=== PATIENT | male | born 1965 | race Caucasian/White ===

== ENCOUNTER 2020-11-28 01:57 | Day surgery (SDC) | payer MEDICARE, SELFPAY ==
[2020-11-16 12:53] VITALS: BMI 27.1
[2020-11-28 08:34] VITALS: BP 117/68; PULSE 90; RESP 16; TEMP 36.2; O2SAT 100
[2020-11-28] MEDS: LACTATED RINGERS 1,000 ML 150 ML IV CONT (08:46)
--- NOTE | 2020-11-28 09:13 | WPDANESEPPF ---
Anes - Initial Pre Proc Eval Procedure: Operation Date: 11/28/20 09:45 Proposed Procedures p Screening Colonoscopy - Poncho Keys MD Date/Time: 11/28/20 09:13 Surgeon: Poncho Keys MD Pre Op Diagnosis: hx of colon polyps Patient Data Age: 55 Gender: M Height: 1.83 m Weight: 87.8 kg Last Vital Signs Temp 36.2 C L 11/28/20 08:34 Pulse 90 11/28/20 08:34 Resp 16 11/28/20 08:34 BP 117/68 11/28/20 08:34 Pulse Ox 100 11/28/20 08:34 Allergies Allergy/AdvReac Type Severity Reaction Status Date / Time Sulfa (Sulfonamide Allergy Mild rash Verified 11/28/20 08:30 Antibiotics) Home Medications Medication Instructions Recorded Confirmed Type budesonide 3 mg 6 mg PO DAILY #60 ea 11/06/20 11/16/20 Rx capsule,delayed,extended release Adult One Daily Multivitamin 1 tablet PO DAILY 11/16/20 11/16/20 History FiberCon 2 cap PO BID 11/16/20 11/16/20 History amitriptyline 25 mg PO HS 11/16/20 11/16/20 History atorvastatin 20 mg PO DAILY 11/16/20 11/16/20 History buspirone 10 mg PO DAILY 11/16/20 11/16/20 History diphenhydramine HCl [Sleep Aid 25 mg PO HS 11/16/20 11/16/20 History (diphenhydramine)] hydrochlorothiazide 25 mg PO DAILY 11/16/20 11/16/20 History lorazepam 1 mg PO TID 11/16/20 11/16/20 History losartan 100 mg PO HS 11/16/20 11/16/20 History melatonin 15 mg PO HS 11/16/20 11/16/20 History metoprolol tartrate 50 mg PO BID 11/16/20 11/16/20 History niacin 500 mg PO BID 11/16/20 11/16/20 History quetiapine 100 mg PO HS 11/16/20 11/16/20 History timolol maleate 1 drp EACH EYE BID 11/16/20 11/16/20 History trazodone 200 mg PO HS 11/16/20 11/16/20 History venlafaxine 150 mg PO DAILY 11/16/20 11/16/20 History Patient hx anesthesia problems: none Family hx anesthesia problems: none [facility] Social History Social History (Updated 11/06/20 @ 14:27 by Renea Paredes [facility]) Smoking packs per day: 0.5 Smoking cigarettes per day: 10.0 Years smoked: 28 Smoking pack-years: 14.00 Smoking status: Current every day smoker Tobacco type: cigarettes Second hand tobacco smoke exposure: No Alcohol intake: former Substance use: never Living arrangements: alone Spiritual care concerns: No Anes - Eval Final PreProcedure Day of Procedure 11/28/20 09:13 Patient weight: overweight Heart: regular rate and rhythm Lungs: clear to auscultation and normal air movement Airway: Mallampati scale class II Neurological: alert and oriented Last oral intake: >/= 8 hours ASA classification: II Emergent: no Anesthetic plan: proceed Anesthesia type and monitoring: general GIVS Informed Consent: The patient's anesthetic plan and its attendant risks and benefits were discussed with the patient/family/POA. Questions were solicited and answers provided to the satisfaction of the patient/family/POA.
--- NOTE | 2020-11-28 09:27 | WPDGICN ---
Assessment and Plan Assessment and plan (1) Chronic diarrhea: Code(s): K52.9 - Noninfective gastroenteritis and colitis, unspecified Status: Acute Assessment and Plan: Patient has complaints of chronic ongoing diarrhea. This may be related to irritable bowel syndrome. He has had a partial colectomy which could contribute to diarrhea. Irritable bowel syndrome has been suggested. On 1 previous colonoscopy microscopic colitis was identified. Currently had no response to budesonide. Plan is for repeat colonoscopy to assess for ongoing diarrhea. Further recommendations will be given after endoscopy. (2) History of colon polyps: Code(s): Z86.010 - Personal history of colonic polyps Status: Acute Assessment and Plan: Patient is reported to have colon polyps in the past. Surveillance colonoscopy is advised for this reason. (3) IBS (irritable bowel syndrome): Code(s): K58.9 - Irritable bowel syndrome without diarrhea Status: Acute (4) Microscopic colitis: Code(s): K52.839 - Microscopic colitis, unspecified Status: Acute Assessment and Plan: Patient with a history of microscopic colitis. Currently has poor response to budesonide suggest an alternate etiology for his diarrhea. (5) History of partial colectomy: Code(s): Z90.49 - Acquired absence of other specified parts of digestive tract Status: Acute Assessment and Plan: Partial colectomy may contribute to his chronic diarrhea. Patient may need to add except this in modified diet. GI Consult Note Consult date/time: 11/28/20 09:27 HPI: Casey Melton is a 55 year old male Presents for colonoscopy because of ongoing complaints of diarrhea. Patient states he never has a formed stool. Patient has a past medical history of colon polyps. He underwent partial colectomy by Dr. Romero many years ago. Colonoscopy by Dr. Vick in 2017 biopsies suggested microscopic colitis. Patient recently has been on budesonide 6 mg p.o. daily with no responsive stools. FiberCon supplements have been added with no change in bowel movements. Patient denies any bleeding or weight loss. Family history is noncontributory. Patient presents today for colonoscopy because of ongoing diarrhea. Review of Systems Review of Systems: All systems reviewed & are unremarkable except as noted in HPI and below [facility] Social History Social History (Updated 11/06/20 @ 14:[address] [facility]) Smoking packs per day: 0.5 Smoking cigarettes per day: 10.0 Years smoked: 28 Smoking pack-years: 14.00 Smoking status: Current every day smoker Tobacco type: cigarettes Second hand tobacco smoke exposure: No Alcohol intake: former Substance use: never Living arrangements: alone Spiritual care concerns: No Meds Home Medications and Allergies Home Medications Medication Instructions Recorded Confirmed Type budesonide 3 mg 6 mg PO DAILY #60 ea 11/06/20 11/16/20 Rx capsule,delayed,extended release Adult One Daily Multivitamin 1 tablet PO DAILY 11/16/20 11/16/20 History FiberCon 2 cap PO BID 11/16/20 11/16/20 History amitriptyline 25 mg PO HS 11/16/20 11/16/20 History atorvastatin 20 mg PO DAILY 11/16/20 11/16/20 History buspirone 10 mg PO DAILY 11/16/20 11/16/20 History diphenhydramine HCl [Sleep Aid 25 mg PO HS 11/16/20 11/16/20 History (diphenhydramine)] hydrochlorothiazide 25 mg PO DAILY 11/16/20 11/16/20 History lorazepam 1 mg PO TID 11/16/20 11/16/20 History losartan 100 mg PO HS 11/16/20 11/16/20 History melatonin 15 mg PO HS 11/16/20 11/16/20 History metoprolol tartrate 50 mg PO BID 11/16/20 11/16/20 History niacin 500 mg PO BID 11/16/20 11/16/20 History quetiapine 100 mg PO HS 11/16/20 11/16/20 History timolol maleate 1 drp EACH EYE BID 11/16/20 11/16/20 History trazodone 200 mg PO HS 11/16/20 11/16/20 History venlafaxine 150 mg PO DAILY 11/16/20 11/16/20 History A
[2020-11-28 10:25] VITALS: BP 90/56; PULSE 63; RESP 29; O2SAT 96
[2020-11-28 10:35] VITALS: BP 88/60; PULSE 62; RESP 27; O2SAT 96
[2020-11-28 10:45] VITALS: BP 112/77; PULSE 69; RESP 29; O2SAT 100
== END 2020-11-28 11:05 | disposition home or self-care (01) ==
PROVIDERS: PCP Family Medicine Adolescent Medicine; Visit Provider Internal Medicine Gastroenterology
PROC: 0DJD8ZZ Inspection of Lower Intestinal Tract, Via Natural or Artificial Opening Endoscopic (ICD-10-PCS; CPT 45378; principal; 2020-11-28 09:45)
DX: K52.9 Noninfective gastroenteritis and colitis, unspecified (principal); D12.4 Benign neoplasm of descending colon; Z98.0 Intestinal bypass and anastomosis status; K64.8 Other hemorrhoids; K52.839 Microscopic colitis, unspecified; Z90.49 Acquired absence of other specified parts of digestive tract; F17.210 Nicotine dependence, cigarettes, uncomplicated
CPT/HCPCS: 45380; 45385; 88305; J2704; J7120

== ENCOUNTER 2020-12-15 10:39 | Outpatient (CLI) | payer MEDICARE, SELFPAY ==
[2020-12-15 12:03] LABS: Basophils Percent Auto 0.6 % (0.2-1.2); Eosinophils Absolute Auto 0.1 K/mm3 (0-0.3); Eosinophils Percent Auto 2.1 % (0-4.4); Hematocrit 38.8 % (42.0-52.0); Immature Granulocyte Absolute 0.01 K/mm3 (0.00-0.031); Immature Granulocyte Percent A 0.2 % (0-0.5); Lymphocytes Absolute Auto 2.72 K/mm3 (0.9-3.2); Lymphocytes Percent Auto 52.1 % (18.3-44.2); Mean Corpuscular HGB Conc 33.5 g/dl (32-36); Mean Corpuscular Hemoglobin 30.2 pg (26-34); Mean Corpuscular Volume 90.2 fl (80-100); Mean Platelet Volume 9.5 fl (7.4-10.4); Monocytes Absolute Auto 0.4 K/mm3 (0.1-0.6); Monocytes Percent Auto 8.2 % (2.6-8.5); Neutrophils Absolute Auto 1.9 K/mm3 (1.3-6.7); Neutrophils Percent Auto 36.8 % (45.5-73.1); Platelet Count Result 247 k/mm3 (150-375); Red Cell Distribution Width 13.3 % (11.5-14.5); White Blood Count 5.2 K/mm3 (4.5-10.0)
[2020-12-15 12:18] LABS: Alanine Aminotransferase 29 U/L (4-50); Albumin Level 4.3 g/dL (3.5-5.1); Alkaline Phosphatase 81 U/L (38-126); Anion Gap 12 mmol/L (8-16); Aspartate Amino Transferase 27 U/L (17-59); Bilirubin,Total 0.5 mg/dL (0.2-1.3); Blood Urea Nitrogen 30 mg/dL (9-20); Calcium 7.1 mg/dL (8.4-10.2); Carbon Dioxide 21 mmol/L (22-30); Chloride 107 mmol/L (98-107); Estimated Glomerular Filt Rate 37; Glucose 107 mg/dL (65-110); Potassium 3.9 mmol/L (3.4-5.0); Sodium 140 mmol/L (137-145)
[2020-12-15 12:33] LABS: Free T4 Free Thyroxine 1.18 ng/mL (0.78-2.19)
[2020-12-21 11:43] LABS: Gliadin AB, IgG 3 Units (<20); Reticulin IgA Negative (Negative); TTG IGA AB 1 U/mL (<4)
== END 2020-12-15 10:40 | disposition home or self-care (01) ==
PROVIDERS: PCP Family Medicine Adolescent Medicine; Visit Provider Internal Medicine Gastroenterology
DX: K52.9 Noninfective gastroenteritis and colitis, unspecified (principal)
CPT/HCPCS: 36415; 80053; 83516; 84439; 85025; 86255

== ENCOUNTER 2021-03-02 08:53 | Outpatient (CLI) | payer MEDICARE, SELFPAY ==
--- NOTE | ~2021-03-02 | XR_ITS ---
EXAMINATION: XR small bowel follow through EXAM DATE: 03/02/2021 10:10 INDICATION: K52.9Noninfective gastroenteritis and colitis, [id number] TECHNIQUE: Pediatric Clinical Nurse Specialist radiograph was acquired. Barium was administered for small bowel exam performed by radiologist Luis Holman M.D.. Spot images of the terminal ileum were acquired. Pulsed dose reductio n fluoroscopy was used with fluoroscopic time of 0.2. The DAP for this procedure was 107 Gycm2. A t otal of 44 images obtained for the exam. Correlation is made to CT abdomen pelvis 11/08/2014. FINDINGS: Ileal and jejunal fold patterns are normal. There is no small bowel wall thickening or m ass effect displacing small bowel. There are no intraluminal filling defects identified. There is n o small bowel dilation. Terminal ileum is normal in appearance. Contrast reached the colon by 15 mi nutes time, rapid transit. Incidental note made of prominent rugal folds on the 15 minute KUB. Could be phasic but with some dif ferential diagnosis considerations including gastritis, Kranthi Alcazar syndrome, Menetrier's disea se, and possibly early lymphoma. IMPRESSION: 1. Rapid transit time of 15 minutes. Unremarkable small bowel. 2. Prominent rugal folds, could be phasic but consider upper GI examination. Reviewed, dictated and finalized at location A.
== END 2021-03-02 08:54 | disposition home or self-care (01) ==
PROVIDERS: PCP Family Medicine Adolescent Medicine; Visit Provider Internal Medicine Gastroenterology
DX: K52.839 Microscopic colitis, unspecified (principal)
CPT/HCPCS: 74250

== ENCOUNTER 2021-03-20 22:47 | Inpatient (IN) | payer MEDICARE, SELFPAY ==
[2021-03-20 22:48] VITALS: BP 143/81; PULSE 98; RESP 18; TEMP 36.4; O2SAT 100
[2021-03-20 23:22] LABS: Basophils Percent Auto 0.5 % (0.2-1.2); Eosinophils Percent Auto 0.1 % (0-4.4); Hematocrit 36.6 % (42.0-52.0); Hemoglobin 13.7 g/dL (14.0-18.0); Immature Granulocyte Absolute 0.02 K/mm3 (0.00-0.031); Immature Granulocyte Percent A 0.2 % (0-0.5); Lymphocytes Absolute Auto 1.97 K/mm3 (0.9-3.2); Lymphocytes Percent Auto 22.2 % (18.3-44.2); Mean Corpuscular HGB Conc 37.4 g/dl (32-36); Mean Corpuscular Hemoglobin 32.3 pg (26-34); Mean Corpuscular Volume 86.3 fl (80-100); Mean Platelet Volume 9.5 fl (7.4-10.4); Monocytes Absolute Auto 0.4 K/mm3 (0.1-0.6); Monocytes Percent Auto 4.4 % (2.6-8.5); Neutrophils Absolute Auto 6.5 K/mm3 (1.3-6.7); Neutrophils Percent Auto 72.6 % (45.5-73.1); Platelet Count Result 288 k/mm3 (150-375); Red Blood Count 4.24 M/mm3 (4.6-6.20); White Blood Count 8.9 K/mm3 (4.5-10.0)
[2021-03-20 23:24] VITALS: BP 127/82; PULSE 96; RESP 37; O2SAT 100
[2021-03-20 23:31] LABS: Alanine Aminotransferase 25 U/L (4-50); Albumin Level 4.8 g/dL (3.5-5.1); Alkaline Phosphatase 88 U/L (38-126); Anion Gap 24 mmol/L (8-16); Aspartate Amino Transferase 31 U/L (17-59); Bilirubin,Total 0.8 mg/dL (0.2-1.3); Blood Urea Nitrogen 73 mg/dL (9-20); Calcium 6.8 mg/dL (8.4-10.2); Carbon Dioxide 11 mmol/L (22-30); Chloride 100 mmol/L (98-107); Estimated CRCL calculation 23 ml/min; Estimated Glomerular Filt Rate 18; Glucose 118 mg/dL (65-110); Lipase 273 U/L (23-300); Potassium 2.9 mmol/L (3.4-5.0); Sodium 135 mmol/L (137-145)
--- NOTE | 2021-03-20 23:37 | ED.NAVMDI ---
HPI - Nausea/Vomiting/Diarrhea General Chief complaint: Nausea/Vomiting/Diarrhea Stated complaint: gen weakness, vomit, diarrhea, fatigue Time Seen by Provider: 03/20/21 23:35 Source: patient Mode of arrival: ambulatory Limitations: no limitations History of Present Illness HPI Narrative: Patient is a 56-year-old male with a history of microscopic colitis, following with gastroenterology Dr. Keys, presenting for evaluation of vomiting and diarrhea. Patient denies any abdominal pain, states that 3 to 4 days ago he developed numerous episodes of nonbloody, nonbilious emesis. Patient states he has been unable to tolerate any oral intake over the past 72 hours. Patient denies any abdominal pain or cramping. Reports multiple episodes of loose stools daily patient states he has been compliant with his budesonide as prescribed to him to help with chronic diarrhea, although he has not had improvement in his symptoms patient reports feeling dehydrated. He reports muscle cramping. He denies recent food indiscretions. No recent travel. He is vaccinated for Covid, does have history of Covid infection in December. Related Data Home Medications Medication Instructions Recorded Confirmed Adult One Daily Multivitamin 1 tablet PO DAILY 11/16/20 03/21/21 amitriptyline 75 mg PO HS 11/16/20 03/21/21 atorvastatin 20 mg PO DAILY 11/16/20 03/21/21 buspirone 10 mg PO BID 11/16/20 03/21/21 hydrochlorothiazide 25 mg PO DAILY 11/16/20 03/21/21 lorazepam 1 mg PO TID 11/16/20 03/21/21 losartan 100 mg PO HS 11/16/20 03/21/21 melatonin 15 mg PO HS 11/16/20 03/21/21 metoprolol tartrate 50 mg PO BID 11/16/20 03/21/21 niacin 500 mg PO BID 11/16/20 03/21/21 quetiapine 100 mg PO HS 11/16/20 03/21/21 timolol maleate 1 drp EACH EYE BID 11/16/20 03/21/21 trazodone 200 mg PO HS 11/16/20 03/21/21 venlafaxine 150 mg PO DAILY 11/16/20 03/21/21 Allergies Allergy/AdvReac Type Severity Reaction Status Date / Time Sulfa (Sulfonamide Allergy Mild rash Verified 03/20/21 22:54 Antibiotics) Review of Systems Review of Systems: CONSTITUTIONAL: Denies fever, chills, or sweats. EYES: Denies visual changes, redness, or discharge. ENT: Denies rhinorrhea, congestion, sore throat, or otalgia. CARDIOVASCULAR: Denies chest pain, palpitations, or edema. RESPIRATORY: Denies cough or dyspnea. GASTROINTESTINAL: Denies abdominal pain, reports nausea, vomiting and diarrhea GENITOURINARY: Denies dysuria or hematuria. SKIN: Denies rash or itching. MUSCULOSKELETAL: Denies back pain, joint pain, reports myalgias and leg cramping NEUROLOGIC: Denies headache, numbness, or weakness. [facility] Past Medical History Medical History (Updated 03/21/21 @ 03:33 by Winter Martínez MD) Chronic diarrhea History of colon polyps IBS (irritable bowel syndrome) Microscopic colitis Surgical History Surgical History (Updated 03/21/21 @ 00:01 by Winter Martínez MD) History of partial colectomy Social History Social History Smoking packs per day: 0.5 Smoking cigarettes per day: 10.0 Years smoked: 28 Smoking pack-years: 14.00 Smoking status: Current every day smoker Tobacco type: cigarettes Second hand tobacco smoke exposure: No Alcohol intake: former Substance use: never Spiritual care concerns: No Exam Narrative: GENERAL: Awake, alert, conversant HEAD: Normocephalic, atraumatic. EYES: PERRLA and EOMI. ENT: Nares clear, no rhinorrhea or epistaxis. Mucous membranes dry. NECK: Supple. CHEST: No respiratory distress, breathing even and non labored HEART: Regular rate, sinus rhythm ABDOMEN:Non distended, non tender EXTREMITIES: Normal range of motion. No edema. SKIN: Warm, dry, no rash. NEURO:No focal deficits. Alert and oriented x3 Course Vital Signs Vital signs: Vital Signs Temperature 36.4 C 03/20/21 22:48 Pulse Rate 98 03/20/21 22:48 Respiratory Rate 18 03/20/21 22:48 Blood Pressu
[2021-03-20] MEDS: SODIUM CHLORIDE 0.9% IV 1,000 ML 999 ML IV CONT (23:43)
[2021-03-20] MEDS: ONDANSETRON INJ 4 MG/2 ML VIAL IV PUSH (23:44)
[2021-03-21] VITALS (11 sets, daily range): BP systolic 128–170; BP diastolic 80–97; PULSE 74–106; RESP 16–25; TEMP 36.3; O2SAT 99–100; BMI 26.9
--- NOTE | 2021-03-21 00:25 | PM.IMHP ---
H&P: HPI History of Present Illness Date/Time: 03/21/21 00:25 Chief Complaint: Nausea and vomiting Narrative: This is a 56-year-old male with past medical history significant for chronic diarrhea, microscopic colitis, irritable bowel syndrome, tobacco dependence, hypertension, glaucoma. Patient presented to the emergency room due to nausea, vomiting for several days unable to keep anything down ,patient started having muscle cramps feeling dizzy dry mouth, no abdominal pain, no fevers ,no rigors, no chills ,no cough, no sputum production, no shortness of breath no melena no hematemesis no bright red blood per rectum he chronically has diarrhea several bowel movements in between 3-8 roughly, vomits had mainly fluid as he has not been able to eat last time he had something to eat was a piece of toast earlier in the day prior to coming to emergency room. Patient was starting to feel lightheaded and had near syncope. Preliminary workup was significant for chemistry panel with creatinine 3.6 BUN 70 potassium 2.9. Patient received fluid resuscitation while in the emergency room decision has been made to admit the patient for further management evaluation and treatment. Review of Systems Review of Systems: Nausea, vomiting, muscle cramps, dizziness, lightheadedness, near-syncope. Constitutional: Constitutional: Denies chills, Reports fatigue, Denies fever(s), Reports lethargy, Reports poor appetite and Reports weakness Eyes: Eyes: Denies change in vision ENT: Denies dysphagia, Denies vertigo, Reports dizziness, Denies nasal congestion, Denies nasal discharge, Denies nasal obstruction and Denies odynophagia Cardiovascular: Cardiovascular: Denies irregular heart rhythm, Denies claudication, Denies leg edema, Reports lightheadedness, Denies radiating jaw, neck or arm pain, Denies palpitations, Denies dyspnea, Denies dyspnea on exertion and Denies orthopnea Respiratory: Respiratory: Denies cough and Denies dyspnea Gastrointestinal: Gastrointestinal: Denies abdominal pain, Denies dyspepsia, Denies heartburn, Reports nausea and Reports vomiting Genitourinary: Genitourinary: Reports no additional male genitourinary complaints and Reports as per HPI Musculoskeletal: Comments: Muscle cramps Integumentary/Breasts: Skin/Breast: Denies rash Neurologic: Denies dizziness, Denies focal weakness, Denies Sensory deficit (Neuro) and Denies weakness Psychiatric: Psychiatric: Reports no additional psychiatric complaints and Reports as per HPI Endocrine: Endocrine: Reports no additional endocrine complaints and Reports as per HPI Hematologic/Lymphatic: Hematologic/Lymphatic: Reports no additional hematologic/lymphatic complaints and Reports as per HPI Allergic/Immunologic: Allergic/Immunologic: Reports no additional allergic/immunologic complaints and Reports as per HPI PMFSH Past Medical History Medical History (Updated 03/21/21 @ 05:09 by Missy García MD) Chronic diarrhea History of colon polyps IBS (irritable bowel syndrome) Microscopic colitis Surgical History Surgical History (Updated 03/21/21 @ 00:01 by Winter Martínez MD) History of partial colectomy Social History Social History Smoking packs per day: 0.5 Smoking cigarettes per day: 10.0 Years smoked: 28 Smoking pack-years: 14.00 Smoking status: Current every day smoker Tobacco type: cigarettes Second hand tobacco smoke exposure: No Alcohol intake: former Substance use: never Spiritual care concerns: No Meds Home Medications and Allergies Home Medications Medication Instructions Recorded Confirmed Type Adult One Daily Multivitamin 1 tablet PO DAILY 11/16/20 03/21/21 History amitriptyline 75 mg PO HS 11/16/20 03/21/21 History atorvastatin 20 mg PO DAILY 11/16/20 03/21/21 History buspirone 10 mg PO BID 11/16/20 03/21/21 History hydrochlorothiazide 25 mg PO DAILY 11/16/20 03/21/21 History evelia
[2021-03-21 00:42] LABS: Magnesium < 0.2 mg/dL (1.6-2.3)
[2021-03-21] MEDS: DEXTROSE 5%/0.45% SOD CHL 1,000 ML 250 ML IV CONT ×2 (00:53→11:00)
[2021-03-21] MEDS: SODIUM CHLORIDE 0.9% IV 1,000 ML 999 ML IV CONT (01:19)
--- NOTE | 2021-03-21 02:00 | PC.NURSE ---
pt unable to urinate and declining straight cath at this time.
[2021-03-21] MEDS: SODIUM CHLORIDE 0.9% IV 1,000 ML 125 ML IV CONT ×2 (02:01→13:46)
[2021-03-21] MEDS: MAGNESIUM SULF 2 GM/WATER 50ML 2 GM/50 ML BAG IVPB (02:02)
--- NOTE | 2021-03-21 02:57 | ADMGEN ---
This patient, Casey Melton, was admitted to 3 [facility] Room 320-01. Patient/family oriented to hospital policies and general routines including ID bracelet, bed and alarms, visiting hours, pain management, procedures, bathroom and other care routines, personal items, smoking policy, room service/diet, and visiting hours. Information on how to activate the Rapid Response Team has been discussed. Patient/Family are encouraged to report perceived risks to care and to ask questions if they do not understand what they are told or what they should do.
[2021-03-21] MEDS: CALCIUM GLUC 1,000 MG/NS 50 ML 1,000 MG/50 ML BAG 100 MG IVPB (04:31)
[2021-03-21 08:02] LABS: Add Urine Microscopic? YES; Appearance Urine Cloudy (Clear); Bilirubin Urine Negative (Negative); Blood Urine 2+ (Negative); Color Urine Yellow (Yellow); Glucose Urine UA Negative (Negative); Hyaline Casts Urine 30-49 /lpf; Ketones Urine 1+ mg/dL (Negative); Leukocyte Esterase Ur Negative LEU/UL (Negative); Mucus Urine Rare /lpf; Nitrate Urine Negative (Negative); Protein Urine 1+ mg/dL (Negative); RBC Urine 0-2 /hpf (0-2); Specific Grav Ur 1.017 (1.001-1.035); Squamous Epithelial Cell Urine Rare /hpf (Few); Urobilinogen Urine Negative mg/dL (<2.0); WBC Urine 0-3 /hpf
--- NOTE | 2021-03-21 10:38 | PM.IMPN ---
Progress Note: A&P Assessment and Plan (1) Dehydration: Code(s): E86.0 - Dehydration Status: Acute Assessment and Plan: Continue IV fluids Monitor daily I's and O's Supportive care (2) Acute hypokalemia: Code(s): E87.6 - Hypokalemia Status: Acute Assessment and Plan: K+ 2.9-->2.17 Will give 40 meq KCL Monitor, replace as needed (3) Acute kidney injury: Code(s): N17.9 - Acute kidney failure, unspecified Status: Acute Assessment and Plan: Cr 2.2 today from 3.6 Likely to be pre renal azotemia Continue IV fluids Monitor (4) Metabolic acidosis: Code(s): E87.2 - Acidosis Status: Acute Assessment and Plan: Likely secondary to nausea vomiting and not been able to take p.o. Continue to monitor Resolving (5) Microscopic colitis: Code(s): K52.839 - Microscopic colitis, unspecified Status: Acute Assessment and Plan: Follow-up in outpatient setting (6) IBS (irritable bowel syndrome): Code(s): K58.9 - Irritable bowel syndrome without diarrhea Status: Acute Assessment and Plan: Continue home meds (7) Chronic diarrhea: Code(s): K52.9 - Noninfective gastroenteritis and colitis, unspecified Status: Acute Assessment and Plan: Unchanged (8) Nausea and vomiting: Code(s): R11.2 - Nausea with vomiting, unspecified Status: Acute Assessment and Plan: Supportive care GI consult Subjective Date/time seen: 03/21/21 10:38 Interval history: Pt seen this a.m; labs, vs reviewed; no acute events overnight; no new complaints Review of Systems Review of Systems: All systems reviewed & are unremarkable except as noted in HPI and below Exam Const: General: no acute distress, alert and awake Orientation/consciousness: patient oriented x3 HENMT: Head: normocephalic and atraumatic Ears: hearing grossly normal bilaterally and external ears normal Face and sinus: face symmetric Mouth: Yes Normal oral and palatal mucosa present Eyes: EOM: EOMs intact bilaterally Neck: Neck: full ROM, trachea midline and no JVD Resp: Effort & Inspection: normal respiratory effort Auscultation: clear to auscultation bilaterally Cardio: Jugular venous distension: no JVD Rate: regular rate Rhythm: regular rhythm Heart sounds: S1 normal heart sound present and S2 normal heart sound present GI: Inspection: normal to inspection GI Palp: Yes Soft to palpation and Yes Tenderness to palpation present (GI) Auscultation: normal bowel sounds : General: Yes no CVA tenderness Skin: General skin exam: normal color Rashes: no rashes Neuro: General: patient oriented x3 and CN's II-XI intact bilaterally Cranial nerves: Yes Equal, round and reactive pupils present Speech: normal speech Extrem: General: full ROM and no clubbing, cyanosis or edema Psych: Appearance: grossly normal Affect: normal affect Judgement: Good judgement present (Psych) Objective Data Vital Signs Vital Signs: Vital Signs - 24 hr 03/20/21 22:48 03/20/21 23:24 03/21/21 01:00 Temperature 36.4 C Pulse Rate 98 96 94 Respiratory Rate 18 37 H 23 H Blood Pressure 143/81 H 127/82 140/81 Pulse Oximetry 100 100 100 03/21/21 02:10 03/21/21 04:00 03/21/21 04:26 Temperature 36.3 C L Pulse Rate 92 79 83 Respiratory Rate 25 H 20 Blood Pressure 138/84 137/88 Pulse Oximetry 99 100 Intake/Output Intake/Output: Intake & Output 03/18/21 03/19/21 03/20/21 03/21/21 23:59 23:59 23:59 23:59 Intake Total 2150 Balance 2150 Meds/Results Medications: Active Medications Generic Name Dose Route Start Last Admin Trade Name Freq PRN Reason Stop Dose Admin Dextrose/Sodium Chloride 1,000 mls @ 250 mls/hr 03/20/21 23:45 03/21/21 00:53 Dextrose 5% Sodium Chloride 0.45% IV CONT 250 mls/hr .Q4H GORGE Administration Sodium Chloride 1,000 mls @ 125 mls/hr 03/21/21 00:25 03/21/21 02:01 Normal Salin
[2021-03-21 12:41] LABS: Anion Gap 13 mmol/L (8-16); Blood Urea Nitrogen 54 mg/dL (9-20); Calcium 6.4 mg/dL (8.4-10.2); Carbon Dioxide 15 mmol/L (22-30); Chloride 107 mmol/L (98-107); Estimated CRCL calculation 37 ml/min; Estimated Glomerular Filt Rate 31; Glucose 151 mg/dL (65-110); Potassium 2.7 mmol/L (3.4-5.0); Sodium 135 mmol/L (137-145)
[2021-03-21 13:02] LABS: Hemoglobin 11.2 g/dL (14.0-18.0); Mean Corpuscular HGB Conc 37.3 g/dl (32-36); Mean Corpuscular Hemoglobin 32.3 pg (26-34); Mean Corpuscular Volume 86.5 fl (80-100); Platelet Count Result 226 k/mm3 (150-375); Red Blood Count 3.47 M/mm3 (4.6-6.20); White Blood Count 8.6 K/mm3 (4.5-10.0)
--- NOTE | 2021-03-21 14:26 | WPDGICN ---
Assessment and Plan Assessment and plan (1) Chronic diarrhea: Code(s): K52.9 - Noninfective gastroenteritis and colitis, unspecified Status: Acute Assessment and Plan: more symptomatic lately but also nausea and vomiting he thinks that budesonide made it worse, he has known history of microscopic colitis but normal colon random bx last time continue supportive care serology for celiac disease in the past negative will start questran to see if will help (2) Microscopic colitis: Code(s): K52.839 - Microscopic colitis, unspecified Status: Acute (3) Acute kidney injury: Code(s): N17.9 - Acute kidney failure, unspecified Status: Acute Assessment and Plan: improving, from dehydration and n/v ok to start liquid diet and advance as tolerated (4) Dehydration: Code(s): E86.0 - Dehydration Status: Acute (5) Nausea and vomiting: Code(s): R11.2 - Nausea with vomiting, unspecified Status: Acute Assessment and Plan: better today never had egd (6) Acute hypokalemia: Code(s): E87.6 - Hypokalemia Status: Acute Assessment and Plan: treated GI Consult Note Consult date/time: 03/21/21 14:26 Reason for consult: diarrhea, n/v, dehydration HPI: Casey Melton is a 56 year old male with history of partial right colectomy years ago because large colon polyp, chronic intermittent diarrhea for which he has seen Dr Keys, at baseline will have 3-10 loose stools, he had a distant colonoscopy that Dr Keys performed several years ago that showed microscopic colitis then follow-up colonoscopy several years later was unremarkable, then 2016 Dr. Barrow did a colonoscopy that histology of the biopsies confirmed microscopic colitis lymphocytic colitis. He failed a trial of fiber and imodium AD. Last colonoscopy 11/2020 with TA polyp and normal random colon bx, he used budesonide but last few days even with more diarrhea and accidents. Yesterday also nausea with vomiting, feeling dizzy and lightheaded with near syncope. ER evaluation showed dehydration with renal failure, creatinine 3.6 BUN 70 potassium 2.9. Review of Systems Constitutional: Constitutional: Denies chills Eyes: Eyes: Denies blurry vision ENT: Reports Normal hearing present Cardiovascular: Cardiovascular: Denies chest pain Respiratory: Respiratory: Denies dyspnea Gastrointestinal: Gastrointestinal: Reports diarrhea Genitourinary: Genitourinary: Denies dysuria Musculoskeletal: Musculoskeletal: Denies neck pain Integumentary/Breasts: Skin/Breast: Denies dry skin Neurologic: Denies headache(s) Psychiatric: Psychiatric: Denies behavioral changes [facility] Past Medical History Medical History (Updated 03/21/21 @ 05:09 by Misys García MD) Chronic diarrhea History of colon polyps IBS (irritable bowel syndrome) Microscopic colitis Surgical History Surgical History (Updated 03/21/21 @ 00:01 by Winter Martínez MD) History of partial colectomy Social History Social History Smoking packs per day: 0.5 Smoking cigarettes per day: 10.0 Years smoked: 28 Smoking pack-years: 14.00 Smoking status: Current every day smoker Tobacco type: cigarettes Second hand tobacco smoke exposure: No Alcohol intake: former Substance use: never Spiritual care concerns: No Meds Home Medications and Allergies Home Medications Medication Instructions Recorded Confirmed Type Adult One Daily Multivitamin 1 tablet PO DAILY 11/16/20 03/21/21 History amitriptyline 75 mg PO HS 11/16/20 03/21/21 History atorvastatin 20 mg PO DAILY 11/16/20 03/21/21 History buspirone 10 mg PO BID 11/16/20 03/21/21 History hydrochlorothiazide 25 mg PO DAILY 11/16/20 03/21/21 History lorazepam 1 mg PO TID 11/16/20 03/21/21 History losartan 100 mg PO HS 11/16/20 03/21/21 History melatonin 15 mg PO HS 11/16/20 03/21/21 History me
[2021-03-21] MEDS: TIMOLOL MALEATE 0.5% OP SOLN 5 ML BOTTLE 1 DROP EACH EYE (16:30)
[2021-03-21] MEDS: busPIRone HCL 10 MG TABLET PO (17:03)
[2021-03-21] MEDS: METOPROLOL TARTRATE 50 MG TAB PO (17:03)
[2021-03-21] MEDS: LORazepam (*CRX) 1 MG TABLET PO (17:06)
[2021-03-21 19:27] LABS: Albumin Level 4.4 g/dL (3.5-5.1); Anion Gap 12 mmol/L (8-16); Blood Urea Nitrogen 42 mg/dL (9-20); Calcium 6.7 mg/dL (8.4-10.2); Carbon Dioxide 19 mmol/L (22-30); Chloride 105 mmol/L (98-107); Estimated CRCL calculation 45 ml/min; Estimated Glomerular Filt Rate 39; Glucose 144 mg/dL (65-110); Magnesium 0.4 mg/dL (1.6-2.3); Phosphorus 2.1 mg/dL (2.5-4.5); Potassium 2.5 mmol/L (3.4-5.0); Sodium 136 mmol/L (137-145)
[2021-03-21] MEDS: SODIUM CHLORIDE 0.9% IV 1,000 ML 100 ML IV CONT (20:21)
[2021-03-21] MEDS: CHOLESTYRAMINE LIGHT 4 GM POWD.PACK PO (21:46)
[2021-03-21] MEDS: POTASSIUM CHLORIDE 20 MEQ TABLET 40 MEQ PO (21:46)
[2021-03-21] MEDS: POTASSIUM/PHOSPHORUS/SODIUM 1.5 GM PACKET 1 PACKET PO (21:47)
[2021-03-21] MEDS: MAGNESIUM SULFATE 3GM/D5W100ML 3 GM/100 ML BAG IVPB (21:51)
[2021-03-21] MEDS: QUEtiapine FUMARATE 100 MG TABLET PO (21:55)
[2021-03-21 22:25] LABS: Potassium 2.8 mmol/L (3.4-5.0)
[2021-03-22] VITALS (18 sets, daily range): BP systolic 102–142; BP diastolic 73–96; PULSE 64–98; RESP 18–22; TEMP 35.8–36.6; O2SAT 97–100
--- NOTE | 2021-03-22 03:19 | PC.NURSE ---
Transferred patient to IMU 302 Report given to Nayla ORTIZ
--- NOTE | 2021-03-22 03:21 | ECG_ITS ---
Measurements Intervals [place] Rate: 82 P: 34 CO: 157 QRS: -21 QRSD: 96 T: 20 QT: 374 QTc: 439 Interpretive Statements SINUS RHYTHM ATRIAL PREMATURE COMPLEXES BORDERLINE T WAVE ABNORMALITY- INFERIOR LEADS BASELINE ARTIFACT- II, III BORDERLINE ECG Electronically Signed On 03-22-2021 11:32:15 FINANCIAL SALES ADVISOR by Brad Fraser D.O.
[2021-03-22 05:12] LABS: Magnesium 1.1 mg/dL (1.6-2.3); Phosphorus 1.8 mg/dL (2.5-4.5)
[2021-03-22] MEDS: SODIUM CHLORIDE 0.9% IV 1,000 ML 100 ML IV CONT (06:35)
[2021-03-22 08:22] LABS: Anion Gap 13 mmol/L (8-16); Blood Urea Nitrogen 32 mg/dL (9-20); Carbon Dioxide 18 mmol/L (22-30); Chloride 107 mmol/L (98-107); Estimated CRCL calculation 57 ml/min; Estimated Glomerular Filt Rate 52; Glucose 116 mg/dL (65-110); Potassium 2.7 mmol/L (3.4-5.0); Sodium 138 mmol/L (137-145)
[2021-03-22] MEDS: VENLAFAXINE HCL XR 75 MG CAP.ER.24H 150 MG PO (08:47)
[2021-03-22] MEDS: LORazepam (*CRX) 1 MG TABLET PO ×2 (08:48→17:08)
[2021-03-22] MEDS: TIMOLOL MALEATE 0.5% OP SOLN 5 ML BOTTLE 1 DROP EACH EYE ×2 (08:48→16:53)
[2021-03-22] MEDS: busPIRone HCL 10 MG TABLET PO ×2 (08:48→16:53)
--- NOTE | 2021-03-22 11:22 | WPDGIPROGNO ---
Progress Note: A&P Assessment and Plan (1) Chronic diarrhea: Code(s): K52.9 - Noninfective gastroenteritis and colitis, unspecified Status: Acute Assessment and Plan: started on questran, will advance to low residue diet and continue to monitor overall better (2) Nausea and vomiting: Code(s): R11.2 - Nausea with vomiting, unspecified Status: Acute Assessment and Plan: improving (3) Acute hypokalemia: Code(s): E87.6 - Hypokalemia Status: Acute Assessment and Plan: still running low, replacing (4) Acute kidney injury: Code(s): N17.9 - Acute kidney failure, unspecified Status: Acute Assessment and Plan: improving with medical treatment (5) Dehydration: Code(s): E86.0 - Dehydration Status: Acute Assessment and Plan: resolved, feeling better (6) Metabolic acidosis: Code(s): E87.2 - Acidosis Status: Acute Assessment and Plan: from diarrhea and n/v, improving (7) Microscopic colitis: Code(s): K52.839 - Microscopic colitis, unspecified Status: Acute Subjective Date/time seen: 03/22/21 11:22 Interval history: he was moved to imu because pvc's. He says that started to have more formed stools. Also would like to eat more Review of Systems Review of Systems: All systems reviewed & are unremarkable except as noted in HPI and below Exam Const: General: comfortable and no acute distress HENMT: General nose exam: Normal nares present Eyes: General: appearance normal, both eyes and all related structures Neck: Neck: no JVD Resp: Auscultation: clear to auscultation bilaterally Cardio: Rate: regular rate Rhythm: regular rhythm GI: Inspection: non-distended GI Palp: Yes Soft to palpation and No Guarding due to palpation present (GI) Auscultation: normal bowel sounds Skin: General skin exam: normal color Neuro: Speech: normal speech Motor exam (neuro): Normal motor muscle tone present throughout Extrem: General: normal to inspection Psych: Mental Status: mental status grossly normal Objective Data Vital Signs Vital Signs: Vital Signs - 24 hr 03/21/21 12:00 03/21/21 14:00 03/21/21 16:00 Temperature 97.3 F L Pulse Rate 82 106 H 76 Respiratory Rate 16 Blood Pressure 170/97 H Pulse Oximetry 100 03/21/21 17:03 03/21/21 20:00 03/21/21 22:00 Temperature 97.3 F L Pulse Rate 82 74 74 Respiratory Rate 18 Blood Pressure 128/80 Pulse Oximetry 100 03/22/21 00:00 03/22/21 03:31 03/22/21 04:00 Temperature 97.9 F Pulse Rate 80 88 80 Respiratory Rate 20 Blood Pressure 116/85 Pulse Oximetry 100 03/22/21 05:00 03/22/21 06:00 03/22/21 09:10 Temperature 97.8 F 96.5 F L Pulse Rate 88 98 77 Respiratory Rate 20 22 H Blood Pressure 116/85 134/73 Pulse Oximetry 100 100 Intake/Output Intake/Output: Intake & Output 03/19/21 03/20/21 03/21/21 03/22/21 23:59 23:59 23:59 23:59 Intake Total 7150 1300 Output Total 300 Balance 7150 1000 Meds/Results Medications: Active Medications Generic Name Dose Route Start Last Admin Trade Name Freq PRN Reason Stop Dose Admin Buspirone HCl 10 mg 03/21/21 17:00 03/22/21 08:48 Buspirone Hcl 10 Mg Tablet PO 10 mg BID GORGE Administration Cholestyramine Resin 4 gm 03/21/21 18:00 03/21/21 21:46 Cholestyramine Light 4 Gm Powd.Pack PO 4 gm BID@1000,1800 GORGE Administration Sodium Chloride 1,000 mls @ 100 mls/hr 03/21/21 00:25 03/22/21 06:35 Normal Saline Iv IV CONT 100 mls/hr .Q10H GORGE Administration Diltiazem HCl 100 mg in 100 mls @ 5 mls/hr 03/22/21 02:10 Cardizem 100 Mg/D5w 100 Ml IV CONT .Q20H GORGE 5 MG/HR Lorazepam 1 mg 03/21/21 17:00 03/22/21 08:48 Lorazepam (*Crx) 1 Mg Tablet PO 1 mg TID GORGE Administration Ondansetron HCl 4 mg 03/21/21 00:24 Ondansetron Inj 4 Mg/2 Ml Vial IV PUSH Q4H PRN Nausea Quetiapine
[2021-03-22 12:14] LABS: Potassium 3.2 mmol/L (3.4-5.0)
--- NOTE | 2021-03-22 13:35 | PM.IMPN ---
Progress Note: A&P Assessment and Plan (1) Dehydration: Code(s): E86.0 - Dehydration Status: Acute Assessment and Plan: Dehydration due to and acute exacerbation of chronic diarrhea. Will change IVF from NS-->LR. -LR at 100 cc/hr -Potassium chloride 40 meq x 1 -Potassium citrate 10 meq x 1 -Appreciate recs from Gastroenterology (2) Metabolic acidosis: Code(s): E87.2 - Acidosis Status: Acute Assessment and Plan: Secondary to GI losses. Improving with hydration and electrolyte replacement -BMP at 1700 -LR 100 cc/hr -Replete potassium, magnesium and phosphorus as needed (3) Acute kidney injury: Code(s): N17.9 - Acute kidney failure, unspecified Status: Acute Assessment and Plan: 2/2 intravascular depletion from GI losses. Creatinine downtrending. -Replete electrolytes as needed -LR at 100 cc/hr (4) Acute hypokalemia: Code(s): E87.6 - Hypokalemia Status: Acute Assessment and Plan: Potassium improving at 3.2 -Potassium Chloride 40 mEq -Potassium citrate 10 mEq (5) Microscopic colitis: Code(s): K52.839 - Microscopic colitis, unspecified Status: Acute Assessment and Plan: Follows outpatient with GI. (6) IBS (irritable bowel syndrome): Code(s): K58.9 - Irritable bowel syndrome without diarrhea Status: Acute Assessment and Plan: Follows outpatient with GI. Continue home medications. (7) Anxiety: Code(s): F41.9 - Anxiety disorder, unspecified Status: Acute Assessment and Plan: Hx of anxiety and take lorzepam TID, buspirone BID and quetiapine qhs. -Lorazepam 1 mg TID -Quetiapine 100 mg qhs -Buspirone 10 mg BID (8) Hypertension: Code(s): I10 - Essential (primary) hypertension Status: Inactive Assessment and Plan: History of hypertension on losartan 100 mg daily, metoprolol and hydrochlorothiazide 25 mg po daily. -Hydrochlorothiazide 25 mg daily -Losartan 50 mg BID -Metoprolol 50 mg BID Subjective Date/time seen: Date of Service 03/22/21 13:35 Patient says he has been having trouble with diarrhea for some time now and just had stool studies last Friday. He says acutely about a day ago he had a significant increase from 4-5 episodes of diarrhea/day to 1-2 episodes every hour. He also had poor appetite and was weak. He says he feels much better and wants to have some food. Review of Systems Constitutional: Constitutional: Reports fatigue, Reports lethargy and Reports malaise Gastrointestinal: Gastrointestinal: Denies abdominal pain, Reports diarrhea, Reports loose stools, Reports nausea and Reports vomiting Exam Narrative: GENERAL: NAD, cooperative HEENT: Normocephalic, atraumatic, anicteric NECK: Supple CV: Normal S1, S2, RRR, No MRG RESP: CTAB, Normal work of breathing. Abdomen: Soft, non-tender, non-distended, +BS EXTREMITIES: Warm and well perfused, no clubbing, cyanosis, or edema. +2 Distal pulses bilaterally. SKIN: warm, dry and intact. Many tattoos. NEURO: CN 2-12 Objective Data Vital Signs Vital Signs: Vital Signs - 24 hr 03/21/21 14:00 03/21/21 16:00 03/21/21 17:03 Temperature 97.3 F L Pulse Rate 106 H 76 82 Respiratory Rate 16 Blood Pressure 170/97 H Pulse Oximetry 100 03/21/21 20:00 03/21/21 22:00 03/22/21 00:00 Temperature 97.3 F L Pulse Rate 74 74 80 Respiratory Rate 18 Blood Pressure 128/80 Pulse Oximetry 100 03/22/21 03:31 03/22/21 04:00 03/22/21 05:00 Temperature 97.9 F 97.8 F Pulse Rate 88 80 88 Respiratory Rate 20 20 Blood Pressure 116/85 116/85 Pulse Oximetry 100 100 03/22/21 06:00 03/22/21 08:00 03/22/21 09:10 Temperature 96.5 F L Pulse Rate 98 68 77 Respiratory Rate 22 H Blood Pressure 134/73 Pulse Oximetry 100 03/22/21 10:00 03/22/21 12:33 Temperature 96.9 F L Pulse Rate 64 64 Respiratory Rate 18 Blood Pressure 134/82 Pulse Oxime
--- NOTE | 2021-03-22 14:15 | PM.CNCAR ---
Assessment and Plan Additional Plan paroxysmal AF, spontaneously converted to SR, admitted with TAB and dehydration, Hx of HTN, [id number] score 1, plan TTE and observation in Tele while in hospital History of Present Illness History of Present Illness Consult date/time: 03/22/21 14:15 Consult reason: atrial fibrillation Reason For Visit: Dehydration, TAB Narrative: Patient presented with acut onset nausea/vomiting with diarrhea. He has hx of IBS. on admission he noted to have TAB and improved with IV fluids. He noted to have AF with RVR HR upto 130, He was told that when his HR was high but he never felt palpitations. He is back to SR spontaneously. He had no Hx of AF, heart disease or stroke Review of Systems Review of Systems: All systems reviewed & are unremarkable except as noted in HPI and below PMFSH Past Medical History Medical History (Updated 03/22/21 @ 14:32 by Adriana Francisco MD) Anxiety Chronic diarrhea History of colon polyps IBS (irritable bowel syndrome) Microscopic colitis Surgical History Surgical History (Updated 03/21/21 @ 00:01 by Winter Martínez MD) History of partial colectomy Social History Social History Smoking packs per day: 0.5 Smoking cigarettes per day: 10.0 Years smoked: 28 Smoking pack-years: 14.00 Smoking status: Current every day smoker Tobacco type: cigarettes Second hand tobacco smoke exposure: No Alcohol intake: former Substance use: never Spiritual care concerns: No Meds Home Medications and Allergies Home Medications Medication Instructions Recorded Confirmed Type Adult One Daily Multivitamin 1 tablet PO DAILY 11/16/20 03/21/21 History amitriptyline 75 mg PO HS 11/16/20 03/21/21 History atorvastatin 20 mg PO DAILY 11/16/20 03/21/21 History buspirone 10 mg PO BID 11/16/20 03/21/21 History hydrochlorothiazide 25 mg PO DAILY 11/16/20 03/21/21 History lorazepam 1 mg PO TID 11/16/20 03/21/21 History losartan 100 mg PO HS 11/16/20 03/21/21 History melatonin 15 mg PO HS 11/16/20 03/21/21 History metoprolol tartrate 50 mg PO BID 11/16/20 03/21/21 History niacin 500 mg PO BID 11/16/20 03/21/21 History quetiapine 100 mg PO HS 11/16/20 03/21/21 History timolol maleate 1 drp EACH EYE BID 11/16/20 03/21/21 History trazodone 200 mg PO HS 11/16/20 03/21/21 History venlafaxine 150 mg PO DAILY 11/16/20 03/21/21 History budesonide 3 mg 9 mg PO DAILY #90 ea 03/19/21 03/21/21 Rx capsule,delayed,extended release Allergies Allergy/AdvReac Type Severity Reaction Status Date / Time Sulfa (Sulfonamide Allergy Mild rash Verified 03/20/21 22:54 Antibiotics) Vital Signs Vital Signs - 24 hr 03/21/21 16:00 03/21/21 17:03 03/21/21 20:00 Temperature Pulse Rate 76 82 74 Respiratory Rate Blood Pressure Pulse Oximetry 03/21/21 22:00 03/22/21 00:00 03/22/21 03:31 Temperature 36.3 C L 36.6 C Pulse Rate 74 80 88 Respiratory Rate 18 20 Blood Pressure 128/80 116/85 Pulse Oximetry 100 100 03/22/21 04:00 03/22/21 05:00 03/22/21 06:00 Temperature 36.6 C Pulse Rate 80 88 98 Respiratory Rate 20 Blood Pressure 116/85 Pulse Oximetry 100 03/22/21 08:00 03/22/21 09:10 03/22/21 10:00 Temperature 35.8 C L Pulse Rate 68 77 64 Respiratory Rate 22 H Blood Pressure 134/73 Pulse Oximetry 100 03/22/21 12:33 Temperature 36.1 C L Pulse Rate 64 Respiratory Rate 18 Blood Pressure 134/82 Pulse Oximetry 99 Exam Const: General: comfortable and no acute distress Other: Able to lie flat HENMT: General nose exam: Normal nares present and no epistaxis Mouth: Yes moist mucous membranes Eyes: Sclera: sclerae normal Pupils: Equal, round and reactive pupils present Neck: Neck: supple and no JVD Carotids: no bruits Resp: Auscultation: clear to auscultation bilaterally and lung sounds not diminished Other: No chest wall tenderness Cardio: Rate: regular r
[2021-03-22 16:12] LABS: Anion Gap 11 mmol/L (8-16); Blood Urea Nitrogen 25 mg/dL (9-20); Calcium 6.9 mg/dL (8.4-10.2); Carbon Dioxide 19 mmol/L (22-30); Chloride 109 mmol/L (98-107); Estimated CRCL calculation 66 ml/min; Estimated Glomerular Filt Rate > 60; Glucose 111 mg/dL (65-110); Potassium 3.2 mmol/L (3.4-5.0); Sodium 139 mmol/L (137-145)
[2021-03-22] MEDS: KCL 20 MEQ/SW 100 ML 100 ML 50 MEQ IVPB ×2 (16:51→20:00)
[2021-03-22] MEDS: LACTATED RINGERS 1,000 ML 100 ML IV CONT (16:52)
[2021-03-22] MEDS: POTASSIUM CITRATE 5 MEQ TAB CR 10 MEQ PO (16:52)
[2021-03-22] MEDS: CHOLESTYRAMINE LIGHT 4 GM POWD.PACK PO (16:55)
[2021-03-22] MEDS: QUEtiapine FUMARATE 100 MG TABLET PO (20:03)
[2021-03-23] VITALS (21 sets, daily range): BP systolic 110–153; BP diastolic 60–93; PULSE 67–158; RESP 18–22; TEMP 36.4–36.8; O2SAT 96–100
--- NOTE | 2021-03-23 | ECHO_ITS ---
Patient Info Name: Casey Melton Age: 56 years : 1965 Gender: Male Ht: 72 in Wt: 198 lbs BSA: 2.15 m2 HR: 78 bpm BP: 124 / 83 mmHg Technical Quality: Good Exam Date: 03/23/2021 10:20 AM Exam Location: [facility] Pulmonary Exam Room: 203 Patient Status: Inpatient Admit Date: 03/21/2021 Staff Ordering Physician: Adriana Francisco MD [employer] Team Member: Valerie Patrick RDCS Attending Provider: Missy García MD Referring Physician: Maryam REHMAN; Exam Type: CA echo doppler color flow Study Info Indications - IRREGULAR HEART BEAT Complete two-dimensional, color flow and Doppler transthoracic echocardiogram is performed. Summary 1. Complete two-dimensional, color flow and Doppler transthoracic echocardiogram is performed. 2. Left ventricular systolic function is normal, estimated at 60-65%. 3. The left ventricular diastolic function is grade I diastolic dysfunction. 4. Left atrial chamber dimension is mildly enlarged. 5. There is mild tricuspid valve regurgitation. 6. No pulmonary hypertension, estimated pulmonary arterial systolic pressure is 22 mmHg. Left Ventricle Left ventricular chamber dimension is normal. Left ventricular systolic function is normal, estimated at 60-65%. There is no increased left ventricular wall thickness. Left ventricular septal wall motion is normal. The left ventricular diastolic function is grade I diastolic dysfunction. Right Ventricle Right ventricular chamber dimension is normal. Right ventricular systolic function is normal. Left Atria Left atrial chamber dimension is mildly enlarged. Right Atria Right atrial chamber dimension is normal. Atrial Septum Intact interatrial septum visualized by color flow imaging. Aortic Valve The aortic valve is trileaflet. There is no aortic valve sclerosis. There is no aortic valve stenosis. There is no aortic valve regurgitation. Pulmonic Valve The pulmonic valve is normal. There is no pulmonic valve stenosis. There is no pulmonic regurgitation. Mitral Valve The mitral valve has normal leaflets. There is no mitral valve stenosis. There is no mitral valve regurgitation. Tricuspid Valve The tricuspid valve leaflets are normal. There is no significant tricuspid valve stenosis. There is mild tricuspid valve regurgitation. No pulmonary hypertension, estimated pulmonary arterial systolic pressure is 22 mmHg. Pericardium/Pleural The pericardium appears normal. There is no pericardial effusion. Inferior Vena Cava Normal inferior vena cava with >50% collapse upon inspiration consistent with normal right atrial pressure, 5 mmHg. Aorta The aortic root size at the sinus of Valsalva is normal. The prox ascending aorta size is normal. Left Ventricular Outflow Tract Name Value Normal LVOT 2D LVOT Diameter 2.1 cm LVOT Doppler LVOT Peak Gradient 6 mmHg LVOT Mean Gradient 3 mmHg LVOT VTI 22 cm LVOT VTI/AV VTI Ratio 0.7 LVOT Stroke Volume 74 m
--- NOTE | 2021-03-23 04:48 | ECG_ITS ---
Measurements Intervals [place] Rate: 70 P: 2 MS: 149 QRS: -18 QRSD: 101 T: -11 QT: 387 QTc: 420 Interpretive Statements SINUS RHYTHM FREQUENT ATRIAL PREMATURE COMPLEXES BORDERLINE R WAVE PROGRESSION, ANTERIOR LEADS BORDERLINE T WAVE ABNORMALITY- INFERIOR LEADS BASELINE ARTIFACT- AVR, AVL, AVF, V1 ABNORMAL ECG Electronically Signed On 03-23-2021 8:00:06 STOCK UNLOADER by Brad Fraser D.O.
[2021-03-23] MEDS: dilTIAZem HCl INJ 25 MG/5 ML VIAL 20 MG IV PUSH (04:59)
[2021-03-23 05:09] LABS: Anion Gap 9 mmol/L (8-16); Blood Urea Nitrogen 18 mg/dL (9-20); Carbon Dioxide 18 mmol/L (22-30); Chloride 112 mmol/L (98-107); Estimated CRCL calculation 61 ml/min; Estimated Glomerular Filt Rate 57; Glucose 103 mg/dL (65-110); Sodium 139 mmol/L (137-145)
[2021-03-23 05:17] LABS: Magnesium 0.8 mg/dL (1.6-2.3)
[2021-03-23] MEDS: MAGNESIUM SULF 2 GM/WATER 50ML 2 GM/50 ML BAG IVPB ×2 (05:45→11:12)
[2021-03-23] MEDS: METOPROLOL TARTRATE 50 MG TAB PO ×2 (05:54→18:19)
[2021-03-23] MEDS: KCL 20 MEQ/SW 100 ML 100 ML 50 MEQ IVPB ×2 (06:44→09:44)
--- NOTE | 2021-03-23 07:46 | ECG_ITS ---
Measurements Intervals [place] Rate: 158 P: MS: 0 QRS: -12 QRSD: 95 T: 130 QT: 295 QTc: 479 Interpretive Statements ATRIAL FIBRILLATION WITH RAPID VENTRICULAR RESPONSE ST-T WAVE ABNORMALITY IN HIGH LATERAL LEADS- CONSIDER ISCHEMIA ABNORMAL ECG Electronically Signed On 03-23-2021 11:32:40 [employer]IEF [employer]RARIAN [employer]TENSION DEPARTMENT by Brad Fraser D.O.
--- NOTE | 2021-03-23 09:06 | PM.IMPN ---
Progress Note: A&P Assessment and Plan (1) Dehydration: Code(s): E86.0 - Dehydration Status: Acute Assessment and Plan: S/P hydration with IVF. Still on LR and will continue for not given elecrolyte disturbance. -LR at 100 cc/hr -Replete electrolytes as needed -Appreciate recs from Gastroenterology (2) Metabolic acidosis: Code(s): E87.2 - Acidosis Status: Acute Assessment and Plan: Secondary to GI losses. Worsened overnight. -BMP at 1900 -LR 100 cc/hr -Replete potassium, magnesium and phosphorus as needed (3) Atrial fibrillation with RVR: Code(s): I48.91 - Unspecified atrial fibrillation Status: Acute Assessment and Plan: Initially treated with diltiazem ggt and patient converted to NSR. Drip stopped but overnight diltazem ggt restarted due to afib likely from electrolyte disturbance worsening. -Continue diltiazem ggt -Appreciate recs from cardiology (4) Acute kidney injury: Code(s): N17.9 - Acute kidney failure, unspecified Status: Acute Assessment and Plan: 2/2 intravascular depletion from GI losses. Creatinine downtrending. -Replete electrolytes as needed -LR at 100 cc/hr (5) Acute hypokalemia: Code(s): E87.6 - Hypokalemia Status: Acute Assessment and Plan: Potassium worsened overnight. -Giving potassium chloride 40 mEq, potassium phosphate 15 mmol and magnesium sulfate 2 g (6) Microscopic colitis: Code(s): K52.839 - Microscopic colitis, unspecified Status: Acute Assessment and Plan: Follows outpatient with GI. (7) IBS (irritable bowel syndrome): Code(s): K58.9 - Irritable bowel syndrome without diarrhea Status: Acute Assessment and Plan: Follows outpatient with GI. Continue home medications. (8) Anxiety: Code(s): F41.9 - Anxiety disorder, unspecified Status: Acute Assessment and Plan: Hx of anxiety and take lorzepam TID, buspirone BID and quetiapine qhs. -Lorazepam 1 mg TID -Quetiapine 100 mg qhs -Buspirone 10 mg BID (9) Hypertension: Code(s): I10 - Essential (primary) hypertension Status: Inactive Assessment and Plan: History of hypertension on losartan 100 mg daily, metoprolol and hydrochlorothiazide 25 mg po daily. -Hydrochlorothiazide 25 mg daily -Losartan 50 mg BID -Metoprolol 50 mg BID Subjective Date/time seen: Date of service 03/23/21 09:06 Patient says he feels better and tolerated the liquid diet. Says he still has the chronic diarrhea. Review of Systems Gastrointestinal: Gastrointestinal: Reports diarrhea Exam Narrative: GENERAL: NAD, cooperative HEENT: Normocephalic, atraumatic, anicteric NECK: Supple CV: Normal S1, S2, RRR, No MRG RESP: CTAB, Normal work of breathing. Abdomen: Soft, non-tender, non-distended, +BS EXTREMITIES: Warm and well perfused, no clubbing, cyanosis, or edema. +2 Distal pulses bilaterally. SKIN: warm, dry and intact. Many tattoos. NEURO: CN 2-12 Objective Data Vital Signs Vital Signs: Vital Signs - 24 hr 03/22/21 09:10 03/22/21 10:00 03/22/21 12:00 Temperature 96.5 F L Pulse Rate 77 64 83 Respiratory Rate 22 H Blood Pressure 134/73 Pulse Oximetry 100 03/22/21 12:33 03/22/21 14:00 03/22/21 16:00 Temperature 96.9 F L Pulse Rate 64 66 80 Respiratory Rate 18 Blood Pressure 134/82 Pulse Oximetry 99 03/22/21 17:07 03/22/21 17:55 03/22/21 19:51 Temperature 96.9 F L 97.9 F Pulse Rate 69 77 85 Respiratory Rate 20 20 Blood Pressure 142/73 H 125/96 H Pulse Oximetry 98 97 03/22/21 20:00 03/22/21 22:00 03/22/21 22:55 Temperature 97.7 F Pulse Rate 78 87 97 Respiratory Rate 20 Blood Pressure 102/86 Pulse Oximetry 99 03/23/21 00:00 03/23/21 02:00 03/23/21 04:00 Temperature 97.9 F Pulse Rate 72 119 H 86 Respiratory Rate 18 Blood Pressure 153/82 H Pulse Oximetry 97 03/23/21 04:57
[2021-03-23] MEDS: LACTATED RINGERS 1,000 ML 100 ML IV CONT ×2 (09:43→19:53)
[2021-03-23] MEDS: POTASSIUM CITRATE 5 MEQ TAB CR 10 MEQ PO (09:45)
[2021-03-23] MEDS: VENLAFAXINE HCL XR 75 MG CAP.ER.24H 150 MG PO (09:45)
[2021-03-23] MEDS: busPIRone HCL 10 MG TABLET PO ×2 (09:45→18:19)
[2021-03-23] MEDS: TIMOLOL MALEATE 0.5% OP SOLN 5 ML BOTTLE 1 DROP EACH EYE ×2 (09:46→18:20)
[2021-03-23] MEDS: LORazepam (*CRX) 1 MG TABLET PO ×3 (09:47→19:52)
--- NOTE | 2021-03-23 10:00 | WPDGIPROGNO ---
Progress Note: A&P Assessment and Plan (1) Chronic diarrhea: Code(s): K52.9 - Noninfective gastroenteritis and colitis, unspecified Status: Acute Assessment and Plan: will resume budesonide while he is here in the hospital and continue with questran no major changes, still with low Mg and low K (2) Nausea and vomiting: Code(s): R11.2 - Nausea with vomiting, unspecified Status: Acute Assessment and Plan: improving (3) Acute hypokalemia: Code(s): E87.6 - Hypokalemia Status: Acute Assessment and Plan: still running low, also low Mg, replacing (4) Acute kidney injury: Code(s): N17.9 - Acute kidney failure, unspecified Status: Acute Assessment and Plan: resolved after medical treatment but still low lytes (5) Dehydration: Code(s): E86.0 - Dehydration Status: Acute Assessment and Plan: resolved, feeling better (6) Metabolic acidosis: Code(s): E87.2 - Acidosis Status: Acute Assessment and Plan: from diarrhea and n/v, improving (7) Microscopic colitis: Code(s): K52.839 - Microscopic colitis, unspecified Status: Acute Assessment and Plan: will resume budesonide and continue to monitor Subjective Date/time seen: 03/23/21 10:00 Interval history: he says that frequency diarrhea has not changed much and also had accident earlier this morning. Also was on diltiazem gtt because tachycardia and receiving Mg supplement. Review of Systems Review of Systems: All systems reviewed & are unremarkable except as noted in HPI and below Exam Const: General: comfortable and no acute distress HENMT: General nose exam: Normal nares present Eyes: General: appearance normal, both eyes and all related structures Neck: Neck: no JVD Resp: Auscultation: clear to auscultation bilaterally Cardio: Rate: regular rate Rhythm: regular rhythm GI: Inspection: non-distended GI Palp: Yes Soft to palpation and No Guarding due to palpation present (GI) Auscultation: normal bowel sounds Skin: General skin exam: normal color Neuro: Speech: normal speech Motor exam (neuro): Normal motor muscle tone present throughout Extrem: General: normal to inspection Psych: Mental Status: mental status grossly normal Objective Data Vital Signs Vital Signs: Vital Signs - 24 hr 03/22/21 12:00 03/22/21 12:33 03/22/21 14:00 Temperature 96.9 F L Pulse Rate 83 64 66 Respiratory Rate 18 Blood Pressure 134/82 Pulse Oximetry 99 03/22/21 16:00 03/22/21 17:07 03/22/21 17:55 Temperature 96.9 F L Pulse Rate 80 69 77 Respiratory Rate 20 Blood Pressure 142/73 H Pulse Oximetry 98 03/22/21 19:51 03/22/21 20:00 03/22/21 22:00 Temperature 97.9 F Pulse Rate 85 78 87 Respiratory Rate 20 Blood Pressure 125/96 H Pulse Oximetry 97 03/22/21 22:55 03/23/21 00:00 03/23/21 02:00 Temperature 97.7 F Pulse Rate 97 72 119 H Respiratory Rate 20 Blood Pressure 102/86 Pulse Oximetry 99 03/23/21 04:00 03/23/21 04:57 03/23/21 04:58 Temperature 97.9 F Pulse Rate 86 154 H Respiratory Rate 18 Blood Pressure 153/82 H 143/93 H 143/93 H Pulse Oximetry 97 03/23/21 05:26 03/23/21 05:54 03/23/21 06:00 Temperature Pulse Rate 158 H 158 H 146 H Respiratory Rate Blood Pressure 124/83 Pulse Oximetry 03/23/21 08:15 03/23/21 08:38 Temperature 98.2 F Pulse Rate 74 70 Respiratory Rate 22 H Blood Pressure 117/79 117/79 Pulse Oximetry 100 Intake/Output Intake/Output: Intake & Output 03/20/21 03/21/21 03/22/21 03/23/21 23:59 23:59 23:59 23:59 Intake Total 7150 2960 1979 Output Total 303 Balance 7150 2467 1979 Meds/Results Medications: Active Medications Generic Name Dose Route Start Last Admin Trade Name Freq PRN Reason Stop Dose Admin Buspirone HCl 10 mg 03/21/21 17:00 03/23/21 09:45 Buspirone Hcl 10 Mg Tablet PO 10 mg BID
[2021-03-23] MEDS: CALCIUM GLUC 1,000 MG/NS 50 ML 1,000 MG/50 ML BAG 100 MG IVPB (10:06)
[2021-03-23] MEDS: CHOLESTYRAMINE LIGHT 4 GM POWD.PACK PO ×2 (11:15→18:19)
[2021-03-23] MEDS: POTASSIUM PHOS,M-BASIC-D-BASIC 15 MMOL in SODIUM CHLORIDE 0.9% IV 250 ML 63.75 MMOL IVPB (12:00)
--- NOTE | 2021-03-23 13:51 | PM.PNCARD ---
Progress Note: A&P Additional Plan paroxysmal AF, recurrent, was on diltiazem infusion overnight, admitted with TAB and hypokalemia from hypovolemia and diarrhea, Plan not candidate for antiarrhythmai ctherapy at this time bacuse of severe hypokalmeia and hypomagnesemia, will initiate CCB oral for rate control of paroxysmal AF, D/C IV diltiazem and start 60 mg TID. Subjective Date/time seen: 03/23/21 13:51 Interval history: asymptomatic but has recurrent AF with HR in 130s No acuet events Diarrhea Review of Systems Review of Systems: All systems reviewed & are unremarkable except as noted in HPI and below Exam Const: General: comfortable and no acute distress Other: Able to lie flat HENMT: General nose exam: Normal nares present and no epistaxis Mouth: Yes moist mucous membranes Eyes: Sclera: sclerae normal Pupils: Equal, round and reactive pupils present Neck: Neck: supple and no JVD Carotids: no bruits Resp: Auscultation: clear to auscultation bilaterally and lung sounds not diminished Other: No chest wall tenderness Cardio: Rate: regular rate Rhythm: regular rhythm Heart sounds: no gallops, no murmurs and no rubs GI: GI Palp: Yes Soft to palpation and No Tenderness to palpation present (GI) Auscultation: normal bowel sounds Skin: General skin exam: normal color, rashes and/or lesions noted and no erythema Other: Warm Neuro: Cranial nerves: Yes Equal, round and reactive pupils present Speech: normal speech Other: No obvious focal deficit or facial asymmetry Extrem: General: no edema Other: Normal capillary refills Intact distal pulses. Objective Data Vital Signs Vital Signs: Vital Signs - 24 hr 03/22/21 14:00 03/22/21 16:00 03/22/21 17:07 Temperature 36.1 C L Pulse Rate 66 80 69 Respiratory Rate 20 Blood Pressure 142/73 H Pulse Oximetry 98 03/22/21 17:55 03/22/21 19:51 03/22/21 20:00 Temperature 36.6 C Pulse Rate 77 85 78 Respiratory Rate 20 Blood Pressure 125/96 H Pulse Oximetry 97 03/22/21 22:00 03/22/21 22:55 03/23/21 00:00 Temperature 36.5 C Pulse Rate 87 97 72 Respiratory Rate 20 Blood Pressure 102/86 Pulse Oximetry 99 03/23/21 02:00 03/23/21 04:00 03/23/21 04:57 Temperature 36.6 C Pulse Rate 119 H 86 154 H Respiratory Rate 18 Blood Pressure 153/82 H 143/93 H Pulse Oximetry 97 03/23/21 04:58 03/23/21 05:26 03/23/21 05:54 Temperature Pulse Rate 158 H 158 H Respiratory Rate Blood Pressure 143/93 H 124/83 Pulse Oximetry 03/23/21 06:00 03/23/21 08:00 03/23/21 08:15 Temperature Pulse Rate 146 H 67 74 Respiratory Rate Blood Pressure 117/79 Pulse Oximetry 03/23/21 08:38 03/23/21 10:00 03/23/21 12:00 Temperature 36.8 C Pulse Rate 70 78 74 Respiratory Rate 22 H Blood Pressure 117/79 Pulse Oximetry 100 03/23/21 12:59 Temperature 36.8 C Pulse Rate 71 Respiratory Rate 20 Blood Pressure 116/73 Pulse Oximetry 98 Intake/Output Intake/Output: Intake & Output 03/20/21 03/21/21 03/22/21 03/23/21 23:59 23:59 23:59 23:59 Intake Total 7150 2960 2080 Output Total 303 Balance 7150 2657 2080 Meds/Results Medications: Active Medications Generic Name Dose Route Start Last Admin Trade Name Freq PRN Reason Stop Dose Admin Budesonide 9 mg 03/23/21 11:42 Budesonide 3 Mg Cap.Sr.24h PO QAM [facility] Buspirone HCl 10 mg 03/21/21 17:00 03/23/21 09:45 Buspirone Hcl 10 Mg Tablet PO 10 mg BID [facility]GE Administration Calcium Carbonate 200 mg 03/23/21 08:59 Calcium Carbonate (Tums) 500 Mg (200 Mg Elemental) PO 03/24/21 23:59 Q6H PRN Indigestion Calcium Carbonate 200 mg 03/24/21 08:00 Calcium Carbonate (Tums) 500 Mg (200 Mg Elemental) PO DAILY@0800 [facility] Cholestyramine Resin 4 gm 03/21/21 18:00 03/23/21 11:15 Cholestyramine Light 4 Gm Powd.Pack PO 4 gm BID@1000,1800 [facility] Administration Lactated Ringer's 1,000 mls @ 100 m
[2021-03-23] MEDS: CALCIUM CARBONATE (TUMS) 500 MG (200 MG ELEMENTAL) PO ×2 (14:39→19:52)
[2021-03-23] MEDS: BUDESONIDE 3 MG CAP.SR.24H 9 MG PO (18:19)
[2021-03-23] MEDS: QUEtiapine FUMARATE 100 MG TABLET PO (19:52)
[2021-03-23 23:50] LABS: Anion Gap 6 mmol/L (8-16); Blood Urea Nitrogen 12 mg/dL (9-20); Calcium 7.5 mg/dL (8.4-10.2); Carbon Dioxide 20 mmol/L (22-30); Chloride 109 mmol/L (98-107); Estimated CRCL calculation 86 ml/min; Estimated Glomerular Filt Rate > 60; Glucose 101 mg/dL (65-110); Magnesium 1.6 mg/dL (1.6-2.3); Phosphorus 2.1 mg/dL (2.5-4.5); Potassium 3.6 mmol/L (3.4-5.0); Sodium 135 mmol/L (137-145)
[2021-03-24] VITALS (11 sets, daily range): BP systolic 119–157; BP diastolic 63–93; PULSE 66–90; RESP 16–20; TEMP 36.6–36.9; O2SAT 98–100
[2021-03-24] MEDS: POTASSIUM/PHOSPHORUS/SODIUM 1.5 GM PACKET 1 PACKET PO ×2 (02:06→10:19)
[2021-03-24] MEDS: POTASSIUM CHLORIDE 20 MEQ TABLET 40 MEQ PO ×2 (02:07→10:19)
[2021-03-24] MEDS: CALCIUM GLUC 1,000 MG/NS 50 ML 1,000 MG/50 ML BAG 100 MG IVPB (02:08)
[2021-03-24] MEDS: MAGNESIUM SULF 2 GM/WATER 50ML 2 GM/50 ML BAG IVPB (02:08)
[2021-03-24] MEDS: CALCIUM CARBONATE (TUMS) 500 MG (200 MG ELEMENTAL) PO ×2 (04:04→11:42)
[2021-03-24 04:40] LABS: Basophils Absolute Auto 0.1 K/mm3 (0.0-0.1); Basophils Percent Auto 0.7 % (0.2-1.2); Eosinophils Absolute Auto 0.1 K/mm3 (0-0.3); Eosinophils Percent Auto 0.7 % (0-4.4); Hematocrit 32.4 % (42.0-52.0); Hemoglobin 11.5 g/dL (14.0-18.0); Immature Granulocyte Absolute 0.03 K/mm3 (0.00-0.031); Immature Granulocyte Percent A 0.4 % (0-0.5); Lymphocytes Absolute Auto 1.49 K/mm3 (0.9-3.2); Lymphocytes Percent Auto 19.7 % (18.3-44.2); Mean Corpuscular HGB Conc 35.5 g/dl (32-36); Mean Corpuscular Hemoglobin 31.8 pg (26-34); Mean Corpuscular Volume 89.5 fl (80-100); Mean Platelet Volume 9.8 fl (7.4-10.4); Monocytes Absolute Auto 0.4 K/mm3 (0.1-0.6); Monocytes Percent Auto 5.7 % (2.6-8.5); Neutrophils Absolute Auto 5.5 K/mm3 (1.3-6.7); Neutrophils Percent Auto 72.8 % (45.5-73.1); Platelet Count Result 249 k/mm3 (150-375); Red Blood Count 3.62 M/mm3 (4.6-6.20); Red Cell Distribution Width 13.2 % (11.5-14.5); White Blood Count 7.6 K/mm3 (4.5-10.0)
[2021-03-24 04:53] LABS: Anion Gap 4 mmol/L (8-16); Blood Urea Nitrogen 11 mg/dL (9-20); Calcium 8.1 mg/dL (8.4-10.2); Carbon Dioxide 25 mmol/L (22-30); Chloride 109 mmol/L (98-107); Estimated CRCL calculation 86 ml/min; Estimated Glomerular Filt Rate > 60; Glucose 110 mg/dL (65-110); Magnesium 1.9 mg/dL (1.6-2.3); Phosphorus 1.4 mg/dL (2.5-4.5); Potassium 3.7 mmol/L (3.4-5.0); Sodium 138 mmol/L (137-145)
[2021-03-24] MEDS: LORazepam (*CRX) 1 MG TABLET PO ×2 (05:32→14:43)
[2021-03-24] MEDS: LACTATED RINGERS 1,000 ML 100 ML IV CONT ×2 (05:32→14:43)
--- NOTE | 2021-03-24 08:22 | PM.IMPN ---
Progress Note: A&P Assessment and Plan (1) Dehydration: Code(s): E86.0 - Dehydration Status: Acute Assessment and Plan: Initially secondary to an acute exacerbation of chronic diarrhea. Resolved with IVF and patient eating well. -Patient will follow up with GI in clinic -Continue budesonide with discharge (2) Metabolic acidosis: Code(s): E87.2 - Acidosis Status: Acute Assessment and Plan: Secondary to GI losses. Resolved overnight with all electrolytes within range. Gave calcium gluconate and additional potassium this morning. -Follow up with GI outpatient (3) Atrial fibrillation with RVR: Code(s): I48.91 - Unspecified atrial fibrillation Status: Acute Assessment and Plan: Initially treated with diltiazem ggt and patient converted to NSR. Drip stopped but overnight diltazem ggt restarted due to afib likely from electrolyte disturbance worsening. Patient transitioned from diltiazem ggt -->diltiazem-->metoprolol 50 mg TID to metoprolol 100 mg BID as per Cardiology recommendations. -Metoprolol 100 mg BID -Appreciate recs from cardiology (4) Acute kidney injury: Code(s): N17.9 - Acute kidney failure, unspecified Status: Acute Assessment and Plan: 2/2 intravascular depletion from GI losses. Creatinine downtrending. -Replete electrolytes as needed -LR at 100 cc/hr (5) Acute hypokalemia: Code(s): E87.6 - Hypokalemia Status: Acute Assessment and Plan: Resolved with potassium repletion. (6) Microscopic colitis: Code(s): K52.839 - Microscopic colitis, unspecified Status: Acute Assessment and Plan: Follows outpatient with GI. (7) IBS (irritable bowel syndrome): Code(s): K58.9 - Irritable bowel syndrome without diarrhea Status: Acute Assessment and Plan: Follows outpatient with GI. Continue home medications. (8) Anxiety: Code(s): F41.9 - Anxiety disorder, unspecified Status: Acute Assessment and Plan: Hx of anxiety and take lorzepam TID, buspirone BID and quetiapine qhs. -Lorazepam 1 mg TID -Quetiapine 100 mg qhs -Buspirone 10 mg BID (9) Hypertension: Code(s): I10 - Essential (primary) hypertension Status: Inactive Assessment and Plan: History of hypertension on losartan 100 mg daily, metoprolol and hydrochlorothiazide 25 mg po daily. -Hydrochlorothiazide 25 mg daily -Losartan 50 mg BID -Metoprolol 100 mg BID Subjective Date/time seen: Date of Service 03/24/21 08:22 Patient says he feels much better today. Still having diarrhea but it is back to baseline and maybe improving. He says he ate most of his dinner, which he found tolerable compared to lunch. Review of Systems Constitutional: Constitutional: Denies lethargy and Denies malaise Cardiovascular: Cardiovascular: Denies chest pain and Denies rapid heart rate Gastrointestinal: Gastrointestinal: Denies abdominal pain, Reports change in stool character, Reports diarrhea, Denies nausea and Denies vomiting Exam Narrative: GENERAL: NAD, cooperative HEENT: Normocephalic, atraumatic, anicteric NECK: Supple CV: Normal S1, S2, RRR, No MRG RESP: CTAB, Normal work of breathing. Abdomen: Soft, non-tender, non-distended, +BS EXTREMITIES: Warm and well perfused, no clubbing, cyanosis, or edema. +2 Distal pulses bilaterally. SKIN: warm, dry and intact. Many tattoos. NEURO: CN 2-12 Objective Data Vital Signs Vital Signs: Vital Signs - 24 hr 03/23/21 08:38 03/23/21 10:00 03/23/21 12:00 Temperature 98.2 F Pulse Rate 70 78 74 Respiratory Rate 22 H Blood Pressure 117/79 Pulse Oximetry 100 03/23/21 12:59 03/23/21 14:00 03/23/21 16:00 Temperature 98.2 F Pulse Rate 71 68 67 Respiratory Rate 20 Blood Pressure 116/73 Pulse Oximetry 98 03/23/21 17:04 03/23/21 18:00 03/23/21 18:19 Temperature 98.0 F Pulse Rate 73 104 H 73 Respirato
[2021-03-24] MEDS: METOPROLOL TARTRATE 50 MG TAB PO ×2 (08:36→12:51)
[2021-03-24] MEDS: busPIRone HCL 10 MG TABLET PO (08:36)
[2021-03-24] MEDS: BUDESONIDE 3 MG CAP.SR.24H 9 MG PO (08:37)
[2021-03-24] MEDS: TIMOLOL MALEATE 0.5% OP SOLN 5 ML BOTTLE 1 DROP EACH EYE (08:39)
[2021-03-24] MEDS: VENLAFAXINE HCL XR 75 MG CAP.ER.24H 150 MG PO (08:39)
[2021-03-24] MEDS: POTASSIUM CITRATE 5 MEQ TAB CR 10 MEQ PO (08:39)
[2021-03-24] MEDS: ASPIRIN 81 MG ENTERIC TABLET PO (09:00)
[2021-03-24] MEDS: SODIUM PHOSPHATE 20 MM in DEXTROSE 5% IN WATER 250 ML 50 MM IVPB (10:21)
[2021-03-24] MEDS: CHOLESTYRAMINE LIGHT 4 GM POWD.PACK PO (10:21)
--- NOTE | 2021-03-24 12:55 | PM.PNCARD ---
Progress Note: A&P Additional Plan paroxysmal AF, [id number] score 1, plan ASA, change metoprolol to 100 mg BID Subjective Date/time seen: 03/24/21 12:55 Interval history: no acute events Cont to have diarrhea Review of Systems Review of Systems: All systems reviewed & are unremarkable except as noted in HPI and below Exam Const: General: comfortable and no acute distress Other: Able to lie flat HENMT: General nose exam: Normal nares present and no epistaxis Mouth: Yes moist mucous membranes Eyes: Sclera: sclerae normal Pupils: Equal, round and reactive pupils present Neck: Neck: supple and no JVD Carotids: no bruits Resp: Auscultation: clear to auscultation bilaterally and lung sounds not diminished Other: No chest wall tenderness Cardio: Rate: regular rate Rhythm: regular rhythm Heart sounds: no gallops, no murmurs and no rubs GI: GI Palp: Yes Soft to palpation and No Tenderness to palpation present (GI) Auscultation: normal bowel sounds Skin: General skin exam: normal color, rashes and/or lesions noted and no erythema Other: Warm Neuro: Cranial nerves: Yes Equal, round and reactive pupils present Speech: normal speech Other: No obvious focal deficit or facial asymmetry Extrem: General: no edema Other: Normal capillary refills Intact distal pulses. Objective Data Vital Signs Vital Signs: Vital Signs - 24 hr 03/23/21 12:59 03/23/21 14:00 03/23/21 16:00 Temperature 36.8 C Pulse Rate 71 68 67 Respiratory Rate 20 Blood Pressure 116/73 Pulse Oximetry 98 03/23/21 17:04 03/23/21 18:00 03/23/21 18:19 Temperature 36.7 C Pulse Rate 73 104 H 73 Respiratory Rate 20 Blood Pressure 127/74 Pulse Oximetry 99 03/23/21 20:00 03/23/21 22:00 03/24/21 00:00 Temperature 36.4 C L 36.7 C Pulse Rate 67 75 67 Respiratory Rate 20 20 Blood Pressure 110/60 119/63 Pulse Oximetry 96 100 03/24/21 02:00 03/24/21 04:00 03/24/21 06:00 Temperature 36.9 C Pulse Rate 66 77 69 Respiratory Rate 20 Blood Pressure 149/86 H Pulse Oximetry 99 03/24/21 08:00 03/24/21 08:36 03/24/21 12:00 Temperature 36.6 C 36.8 C Pulse Rate 90 86 77 Respiratory Rate 16 20 Blood Pressure 146/78 H 157/93 H Pulse Oximetry 98 99 03/24/21 12:51 Temperature Pulse Rate 75 Respiratory Rate Blood Pressure Pulse Oximetry Intake/Output Intake/Output: Intake & Output 03/21/21 03/22/21 03/23/21 03/24/21 23:59 23:59 23:59 23:59 Intake Total 7150 2960 3995 2180 Output Total 303 400 500 Balance 7150 2657 3595 1680 Meds/Results Medications: Active Medications Generic Name Dose Route Start Last Admin Trade Name Freq PRN Reason Stop Dose Admin Budesonide 9 mg 03/23/21 11:42 03/24/21 08:37 Budesonide 3 Mg Cap.Sr.24h PO 9 mg QAM [facility] Administration Buspirone HCl 10 mg 03/21/21 17:00 03/24/21 08:36 Buspirone Hcl 10 Mg Tablet PO 10 mg BID [facility] Administration Calcium Carbonate 200 mg 03/23/21 08:59 03/24/21 11:42 Calcium Carbonate (Tums) 500 Mg (200 Mg Elemental) PO 03/24/21 23:59 200 mg Q6H PRN Administration Indigestion Calcium Carbonate 200 mg 03/24/21 08:00 03/23/21 19:52 Calcium Carbonate (Tums) 500 Mg (200 Mg Elemental) PO 200 mg DAILY@0800 [facility] Administration Cholestyramine Resin 4 gm 03/21/21 18:00 03/24/21 10:21 Cholestyramine Light 4 Gm Powd.Pack PO 4 gm BID@1000,1800 [facility] Administration Lactated Ringer's 1,000 mls @ 100 mls/hr 03/22/21 13:40 03/24/21 05:32 Lr - Lactated Ringers Iv IV CONT 100 mls/hr .Q10H [facility] Administration Sodium Phosphate 20 mm/ 256.6667 mls @ 50 mls/hr 03/24/21 08:23 03/24/21 10:21 Dextrose IVPB 03/24/21 13:30 50 mls/hr ONCE ONE Administration Lorazepam 1 mg 03/23/21 14:00 03/24/21 05:32 Lorazepam (*Crx) 1 Mg Tablet PO 1 mg Q8HR [facility] Administration Metoprolol Tartrate 50 mg 03/23/21 17:00 03/24/21 12:51 Metoprolol Tartrate 50 Mg Tab PO 50 mg
--- NOTE | 2021-03-24 13:47 | WPDGIPROGNO ---
Progress Note: A&P Assessment and Plan (1) Chronic diarrhea: Code(s): K52.9 - Noninfective gastroenteritis and colitis, unspecified Status: Acute Assessment and Plan: he is feeling better and he can go home by GI standpoint he can call office next week to make an appointment to see Dr Keys continue with budesonide 9 mg and also questran (2) Nausea and vomiting: Code(s): R11.2 - Nausea with vomiting, unspecified Status: Acute Assessment and Plan: resolved (3) Acute hypokalemia: Code(s): E87.6 - Hypokalemia Status: Acute Assessment and Plan: treated and resolved (4) Acute kidney injury: Code(s): N17.9 - Acute kidney failure, unspecified Status: Acute Assessment and Plan: resolved after medical treatment (5) Dehydration: Code(s): E86.0 - Dehydration Status: Acute Assessment and Plan: resolved (6) Metabolic acidosis: Code(s): E87.2 - Acidosis Status: Acute Assessment and Plan: from diarrhea and n/v (7) Microscopic colitis: Code(s): K52.839 - Microscopic colitis, unspecified Status: Acute Assessment and Plan: again back on budesonide and continue to monitor Subjective Date/time seen: 03/24/21 13:47 Interval history: diarrhea finally slowing down, eating more and he is feeling like going home today Review of Systems Review of Systems: All systems reviewed & are unremarkable except as noted in HPI and below Exam Const: General: comfortable and no acute distress HENMT: General nose exam: Normal nares present Eyes: General: appearance normal, both eyes and all related structures Neck: Neck: no JVD Resp: Auscultation: clear to auscultation bilaterally Cardio: Rate: regular rate Rhythm: regular rhythm GI: Inspection: non-distended GI Palp: Yes Soft to palpation and No Guarding due to palpation present (GI) Auscultation: normal bowel sounds Skin: General skin exam: normal color Neuro: Speech: normal speech Motor exam (neuro): Normal motor muscle tone present throughout Extrem: General: normal to inspection Psych: Mental Status: mental status grossly normal Objective Data Vital Signs Vital Signs: Vital Signs - 24 hr 03/23/21 14:00 03/23/21 16:00 03/23/21 17:04 Temperature 98.0 F Pulse Rate 68 67 73 Respiratory Rate 20 Blood Pressure 127/74 Pulse Oximetry 99 03/23/21 18:00 03/23/21 18:19 03/23/21 20:00 Temperature 97.5 F L Pulse Rate 104 H 73 67 Respiratory Rate 20 Blood Pressure 110/60 Pulse Oximetry 96 03/23/21 22:00 03/24/21 00:00 03/24/21 02:00 Temperature 98.1 F Pulse Rate 75 67 66 Respiratory Rate 20 Blood Pressure 119/63 Pulse Oximetry 100 03/24/21 04:00 03/24/21 06:00 03/24/21 08:00 Temperature 98.4 F 97.8 F Pulse Rate 77 69 90 Respiratory Rate 20 16 Blood Pressure 149/86 H 146/78 H Pulse Oximetry 99 98 03/24/21 08:36 03/24/21 12:00 03/24/21 12:51 Temperature 98.2 F Pulse Rate 86 77 75 Respiratory Rate 20 Blood Pressure 157/93 H Pulse Oximetry 99 Intake/Output Intake/Output: Intake & Output 03/21/21 03/22/21 03/23/21 03/24/21 23:59 23:59 23:59 23:59 Intake Total 7150 2960 3995 2180 Output Total 303 400 500 Balance 7150 2657 6835 1680 Meds/Results Medications: Active Medications Generic Name Dose Route Start Last Admin Trade Name Freq PRN Reason Stop Dose Admin Aspirin 81 mg 03/24/21 09:00 Aspirin 81 Mg Enteric Tablet PO QAM [facility] Budesonide 9 mg 03/23/21 11:42 03/24/21 08:37 Budesonide 3 Mg Cap.Sr.24h PO 9 mg QAM [facility] Administration Buspirone HCl 10 mg 03/21/21 17:00 03/24/21 08:36 Buspirone Hcl 10 Mg Tablet PO 10 mg BID [facility]ORGE Administration Calcium Carbonate 200 mg 03/23/21 08:59 03/24/21 11:42 Calcium Carbonate (Tums) 500 Mg (200 Mg Elemental) PO 03/24/21 23:59 200 mg Q6H PRN Administration Indigestion
--- NOTE | 2021-03-24 16:13 | PM.DS ---
DS: Admitting Diagnosis Discharge Date 03/24/2021 Admitting Diagnosis Acute Hyokalemia DS: Discharge Diagnosis Discharge Diagnosis (1) Dehydration: Code(s): E86.0 - Dehydration Status: Acute Assessment and Plan: Initially secondary to an acute exacerbation of chronic diarrhea. Resolved with IVF and patient eating well. -Patient will follow up with GI in clinic -Continue budesonide with discharge (2) Metabolic acidosis: Code(s): E87.2 - Acidosis Status: Acute Assessment and Plan: Secondary to GI losses. Resolved overnight with all electrolytes within range. Gave calcium gluconate and additional potassium this morning. -Follow up with GI outpatient (3) Atrial fibrillation with RVR: Code(s): I48.91 - Unspecified atrial fibrillation Status: Acute Assessment and Plan: Initially treated with diltiazem ggt and patient converted to NSR. Drip stopped but overnight diltazem ggt restarted due to afib likely from electrolyte disturbance worsening. 03/23/21 echo notes EF 60-65% with grade I diastolic dysfunction. Patient transitioned from diltiazem ggt -->diltiazem-->metoprolol 50 mg TID to metoprolol 100 mg BID as per Cardiology recommendations. -Metoprolol 100 mg BID -Appreciate recs from cardiology (4) Acute kidney injury: Code(s): N17.9 - Acute kidney failure, unspecified Status: Acute Assessment and Plan: 2/2 intravascular depletion from GI losses. Creatinine downtrending. -Replete electrolytes as needed -LR at 100 cc/hr (5) Acute hypokalemia: Code(s): E87.6 - Hypokalemia Status: Acute Assessment and Plan: Resolved with potassium repletion. (6) Microscopic colitis: Code(s): K52.839 - Microscopic colitis, unspecified Status: Acute Assessment and Plan: Follows outpatient with GI. (7) IBS (irritable bowel syndrome): Code(s): K58.9 - Irritable bowel syndrome without diarrhea Status: Acute Assessment and Plan: Follows outpatient with GI. Continue home medications. (8) Anxiety: Code(s): F41.9 - Anxiety disorder, unspecified Status: Acute Assessment and Plan: Hx of anxiety and take lorzepam TID, buspirone BID and quetiapine qhs. -Lorazepam 1 mg TID -Quetiapine 100 mg qhs -Buspirone 10 mg BID (9) Hypertension: Code(s): I10 - Essential (primary) hypertension Status: Inactive Assessment and Plan: History of hypertension on losartan 100 mg daily, metoprolol and hydrochlorothiazide 25 mg po daily. Losartan 100 mg daily and HCTZ 25 mg daily were not given in the hospital. To prevent hypotension, will discontinue HCTZ and losartan 100 mg daily for discharge. Patient was hypertensive, so losartan 25 mg po daily was started in addition to the metoprolol and have patient follow up wiht PCP. -Metroprolol 100 mg BID -Losartan 25 mg po daily DS: Summary Hospital Course Hospital Course: Patient presented to the ED with diarrhea. Patient has diarrhea chronically but this was much more intense. Patient found to have a potassium of 2.1. Patient admitted and went into atrial fibrillation with RVR and was started on a diltiazem ggt. Patient was aggressively rehydrated and electrolytes were repleted. Patient spontaneously converted to sinus rhythm on the diltiazem ggt. Cardiology was consulted and started oral diltiazem. Gastroenterology saw the patient and started the budesonide. Patient transitioned to metoprolol BID for metoprolol BID. Patient home medication hydrochlorothiazide was discontinued as it was not given during the hospitalization. Losartan 100 mg was changed to losartan 25 mg po daily due the the patient being hypertensive during hospitalization. Patient discharged to home with follow up with Gastroenteolgy and Cardiology. Time Spent with Patient Time attestation: Total time spent providing and/or coordinating discharge services: 30
== END 2021-03-24 17:58 | disposition home or self-care (01) | DRG 641 ==
LOC: ANHED 03-21 00:04 → ANH3MEDSUR 03-21 03:05 → ANHIMU 03-22 03:22
PROVIDERS: Internal Medicine; Nurse Practitioner Adult Health; Admitting Provider Internal Medicine; Emergency Provider Emergency Medicine; PCP Family Medicine Adolescent Medicine; Visit Provider Family Medicine
DX: E86.0 Dehydration (principal); N17.9 Acute kidney failure, unspecified; K52.839 Microscopic colitis, unspecified; I48.0 Paroxysmal atrial fibrillation; K58.0 Irritable bowel syndrome with diarrhea; E87.2 Acidosis; E87.6 Hypokalemia; E83.42 Hypomagnesemia; I10 Essential (primary) hypertension; F41.9 Anxiety disorder, unspecified; H40.9 Unspecified glaucoma; F17.210 Nicotine dependence, cigarettes, uncomplicated
CPT/HCPCS: 36415; 80048; 80053; 80069; 81001; 83690; 83735; 84100; 84132; 85025; 85027; 93005; 93306; 96361; 96365; 96366; 96368; 96375; 99285; A9270; J0610; J2405; J3475; J3480; J7030; J7050; J7060; J7120

== ENCOUNTER → 2022-05-16 13:10 | Outpatient (CLI) | payer MEDICARE, SELFPAY ==
--- NOTE | ~2022-05-16 | XR_ITS ---
AP and lateral views of the left hip Clinical history: Pain Findings: There is mild flattening/remodeling of the lateral head with extensive sclerosis in the sup erior portion. Suggestion of curvilinear lucency bounding the area of sclerosis.. Left hip joint spac e is mildly narrowed superiorly. Soft tissues are unremarkable. Impression: Abnormal appearance of the humeral head, as detailed above, suggestive of AVN and possible nondisplac ed fracture. MR of the left hip advised to further evaluate. Reviewed, dictated and finalized at location [facility] [employer] Impression: Abnormal appearance of the humeral head, as detailed above, suggestive of AVN a nd possible nondisplaced fracture. MR of the left hip advised to further evalua te.
== END ==
PROVIDERS: PCP Family Medicine Adolescent Medicine; Visit Provider Family Medicine Adolescent Medicine
DX: M25.552 Pain in left hip (principal)
CPT/HCPCS: 73502

== ENCOUNTER 2023-08-21 09:59 | Outpatient (CLI) | payer MEDICARE, SELFPAY ==
--- NOTE | ~2023-08-21 | XR_ITS ---
Clinical Indication: Dyspnea PA and lateral views of the chest: Comparison: 11/08/2014 Findings: The lungs are clear, without evidence of focal consolidation or pleural effusion. Cardiome diastinal silhouette is within normal limits. Stable minimal chronic wedging deformities in the midth oracic spine. Impression: Clear lungs. Reviewed, dictated and finalized at [facility]. Impression: Clear lungs.
== END 2023-08-21 10:00 ==
LOC: MICIMG 10:01
PROVIDERS: PCP Family Medicine Adolescent Medicine; Visit Provider Family Medicine Adolescent Medicine
DX: R06.09 Other forms of dyspnea (principal)
CPT/HCPCS: 71046

== ENCOUNTER 2023-09-16 11:49 | Outpatient (CLI) | payer MEDICARE, SELFPAY ==
--- NOTE | ~2023-09-16 | US_ITS ---
EXAMINATION: US renal BI DATE: 09/16/2023 12:08 INDICATION: Stage IIIa chronic kidney disease TECHNIQUE: Multiple ultrasound grayscale images of the kidneys were obtained. COMPARISON: None. FINDINGS: The right kidney measures 10.5 x 5.4 x 6.8 cm. The left kidney measures 11.5 x 6.0 x 5.0 cm. The kidn eys demonstrate normal echogenicity. There is no hydronephrosis in either kidney. No stones identifi ed. The bladder is normal. IMPRESSION: 1. Normal kidneys without hydronephrosis. Reviewed, dictated and finalized at location A.
== END 2023-09-16 11:50 ==
LOC: MICIMG 11:50
PROVIDERS: PCP Internal Medicine Nephrology; Visit Provider Internal Medicine Nephrology
DX: N18.31 Chronic kidney disease, stage 3a (principal)
CPT/HCPCS: 76775